=== PATIENT | female | born 1960 | race Caucasian/White ===

== ENCOUNTER 2024-12-08 07:02 | Day surgery (SDC) | payer OTHER ==
[2024-12-04 13:20] VITALS: BMI 33.6
[2024-12-08] MEDS ORDERED: PROPOFOL 160 ML ONE (07:33)
[2024-12-08] MEDS ORDERED: LIDOCAINE HCL/PF 2% SDV 5ML VIAL ONE (07:33)
[2024-12-08 07:41] VITALS: RESP 18
[2024-12-08 08:41] VITALS: TEMP 97.3
[2024-12-08 09:39] VITALS: BP 110/71; PULSE 68
== END 2024-12-08 09:08 | disposition home or self-care (01) ==
LOC: FASU-ENDO 07:02
PROVIDERS: ATTEND Internal Medicine Gastroenterology
PROC: 0DJD8ZZ Inspection of Lower Intestinal Tract, Via Natural or Artificial Opening Endoscopic (ICD-10-PCS; principal; 2024-12-08 08:18)
DX: Z12.11 Encounter for screening for malignant neoplasm of colon (principal); K57.30 Diverticulosis of large intestine without perforation or abscess without bleeding